=== PATIENT | male | born 1960 | race Two or more races ===

== ENCOUNTER 2017-04-23 09:26 | Emergency (ER) | payer MEDICAID, OTHER ==
[~2017-04-23] VITALS: Ht 177.8 cm; Wt 90.0 kg
[2017-04-23 09:28] VITALS: BP 165/93
== END 2017-04-23 09:45 | disposition home or self-care (01) ==
LOC: ER 09:44
DX: S21.139A Puncture wound without foreign body of unspecified front wall of thorax without penetration into thoracic cavity, initial encounter (principal); S31.139A Puncture wound of abdominal wall without foreign body, unspecified quadrant without penetration into peritoneal cavity, initial encounter; I10 Essential (primary) hypertension; E66.9 Obesity, unspecified; Z02.89 Encounter for other administrative examinations; X58.XXXA Exposure to other specified factors, initial encounter; Y93.89 Activity, other specified; Y92.89 Other specified places as the place of occurrence of the external cause; Y99.8 Other external cause status
CPT/HCPCS: 99283